=== PATIENT | female | born 2000 | race African-American/Black ===

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

== ENCOUNTER 2020-01-18 20:06 | Emergency (ER) | payer OTHER ==
[~2020-01-18] VITALS: Ht 154.9 cm; Wt 49.0 kg
[2020-01-18 20:58] LABS: URINE BILIRUBIN NEGATIVE (Negative); URINE BLOOD 3+ (Negative); URINE CLARITY CLEAR; URINE COLOR YELLOW; URINE GLUCOSE-RANDOM* NEGATIVE (Negative); URINE KETONES NEGATIVE (Negative); URINE LEUKOCYTES-REFLEX NEGATIVE (Negative); URINE NITRITE-REFLEX NEGATIVE (Negative); URINE PROTEIN (DIPSTICK) TRACE (Negative); URINE SPECIFIC GRAVITY >= 1.030 (1.005-1.035); URINE UROBILINOGEN 0.2 E.U./dl (0.2-1.0)
[2020-01-18 21:05] LABS: MUCUS 0-3 Light strn/LPF (None Seen); SQUAMOUS >10 Many /LPF (0-3)
[2020-01-18 21:06] LABS: URINE RBC 3-10 Few /HPF (0-2)
[2020-01-18 21:07] LABS: CASTS None Seen /LPF (None Seen); CRYSTALS None Seen /LPF (None Seen)
[2020-01-18 21:08] LABS: URINE WBC-REFLEX 0-5 Rare /HPF (0-5)
[2020-01-18] MEDS ORDERED: MOBIC7.5 MG PO (21:53)
[2020-01-18 22:26] VITALS: BP 104/64
== END 2020-01-18 22:27 | disposition home or self-care (01) ==
LOC: ER 20:06
PROVIDERS: Physician Assistant
DX: O02.0 Blighted ovum and nonhydatidiform mole (principal); O46.91 Antepartum hemorrhage, unspecified, first trimester; Z3A.01 Less than 8 weeks gestation of pregnancy